=== PATIENT | female | born 1995 | race Native Hawaiian/Other Pacific Islander ===

== ENCOUNTER 2018-04-29 20:24 | Emergency (ER) | payer SELFPAY ==
[2018-04-29 20:53] VITALS: BP 115/74
[2018-04-29] MEDS ORDERED: MOTRIN ONE (21:02)
[2018-04-29] MEDS ORDERED: MOTRIN PO ONE (21:08)
[2018-04-29] MEDS ORDERED: BENADRYL PO ONE (21:40)
[2018-04-29] MEDS ORDERED: NORCO 7.5/325 PO ONE (21:44)
--- NOTE | 2018-04-29 21:45 | Emergency Department Report ---
ED Lower Extremity HPI - General Chief Complaint: Extremity Injury, Lower Stated Complaint: R ANKLE PAIN Time Seen by Provider: 04/29/18 21:35 Source: patient, EMS Mode of arrival: Wheelchair Limitations: Physical Limitation - History of Present Illness Initial Comments: This is a 23-year-old female who presents with pain to right ankle from falling today. 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 She was planned slip and slide with her students around 1930 today and slipped but did not slide. Patient states she heard a pop when incident occurred. She felt her ankle bend and twist in opposite direction. She was unable to stand. Someone called an ambulance to escort her here. Patient states paramedics had to lift her off the ground. She reports pain is 10 out of 10 on pain scale and constant. There is some swelling with numbness and tingling to lateral ankle. Denies loss of consciousness, nausea/vomiting, chest pain, and deformity. MD Complaint: ankle injury (right ankle) Onset/Timin -: hour(s) Time: 19:30 Injury: Ankle: Right Type of Injury: unknown Place: work Severity: severe Severity scale (0 -10): 10 Improves With: nothing Worsens With: weight bearing, movement, palpation Context: fall Associated Symptoms: snap/pop sensation, swelling, numbness, tingling, unable to bear weight Treatments Prior to Arrival: splint - Related Data Previous Rx's Medication Instructions Recorded Last Taken Type Ibuprofen [Motrin 600 MG tab] 600 mg PO Q8H PRN #15 tablet 04/29/18 Unknown Rx Tizanidine HCl [Zanaflex] 2 mg PO TID PRN #12 capsule 04/29/18 Unknown Rx diphenhydrAMINE [Benadryl CAP] 25 mg PO Q8HR PRN #15 capsule 04/29/18 Unknown Rx traMADol [Ultram 50 MG tab] 50 mg PO Q6HR PRN #15 tablet 04/29/18 Unknown Rx Allergies Allergy/AdvReac Type Severity Reaction Status Date / Time hydrocodone Allergy Itching Verified 04/29/18 20:55 ED Review of Systems ROS: Stated complaint: R ANKLE PAIN Other details as noted in HPI Constitutional: denies: chills, fever Respiratory: denies: cough, shortness of breath, wheezing Cardiovascular: denies: chest pain, palpitations Gastrointestinal: denies: abdominal pain, nausea, diarrhea Musculoskeletal: joint swelling (right ankle), arthralgia (right ankle). denies : back pain Skin: denies: rash, lesions Neurological: numbness. denies: headache, weakness, paresthesias Psychiatric: denies: anxiety, depression ED Past Medical Hx - Past Medical History Previous Medical History?: No - Surgical History Past Surgical History?: Yes Hx Appendectomy: Yes - Social History Smoking Status: Former Smoker Substance Use Type: None - Medications Home Medications: Home Medications Medication Instructions Recorded Confirmed Last Taken Type Ibuprofen [Motrin 600 MG tab] 600 mg PO Q8H PRN #15 tablet 04/29/18 Unknown Rx Tizanidine HCl [Zanaflex] 2 mg PO TID PRN #12 capsule 04/29/18 Unknown Rx diphenhydrAMINE [Benadryl CAP] 25 mg PO Q8HR PRN #15 capsule 04/29/18 Unknown Rx traMADol [Ultram 50 MG tab] 50 mg PO Q6HR PRN #15 tablet 04/29/18 Unknown Rx ED Physical Exam - General Limitations: Physical Limitation General appearance: obese - Respiratory Respiratory exam: Present: normal lung sounds bilaterally. Absent: respiratory distress - Cardiovascular Cardiovascular Exam: Present: regular rate, normal rhythm. Absent: systolic murmur, diastolic murmur, rubs, gallop - GI/Abdominal GI/Abdominal exam: Present: soft, normal bowel sounds. Absent: organomegaly, mass - Extremities Exam Extremities exam: Present: normal inspection, normal capillary refill. Absent: pedal edema, calf tenderness - Expanded Lower Extremity Exam Right Hip exam: Present: normal inspection, full ROM Upper Leg exam: Present: normal inspection, full ROM Knee exam: Present: normal inspection, full ROM Lower Leg exam: Present: normal inspection, full ROM Ankle exam: Present: tenderness (swelling and tenderness to the lateral malleolus, no erythema), swelling. Absent: full ROM (patient is unable to tolerate passive or active range of motion), abrasion, laceration, ecchymosis, deformity, crepidus, dislocation, erythema, anterior draw sign Foot/Toe exam: Present: normal inspection, full ROM Neuro vascular tendon exam: Present: no vascular compromise Gait: Positive: unable to bear weight ED Course Vital Signs 04/29/18 20:36 Temperature 98.6 F Pulse Rate 77 Respiratory 16 Rate Blood Pressure 115/74 O2 Sat by Pulse 100 Oximetry ED Lower Extremity MDM - Radiology Data Radiology results: report reviewed EXAM: XR ANKLE 2V RT HISTORY: fall swollen and painful right ankle TECHNIQUE: Two views right ankle Comparison: None FINDINGS: Normal bony mineralization. Splint material obscures some of the detail. There is an oblique distal fibular metaphyseal fracture extending at the level of the joint into the syndesmosis. There is mild widening of the medial mortise by approximately 0.5 centimeters. There is an accessory ossicle to the talus. Soft tissue swelling is present. No other fractures are identified. IMPRESSION: Gomez B 1 versus B2 fracture oblique distal fibular metaphyseal fracture extending into the syndesmosis. Questionable mild widening of the medial mortise may suggest Gomez B 2. if repeat images could be performed without the splint present it may help improve anatomic detail. - Medical Decision Making This is a 23-year-old female presents with right ankle pain from a fall earlier today. Patient was examined by me. Vitals are normal and patient is in slight acute distress. Patient given Benadryl 25 mg by mouth and [place] 10 /325 mg by mouth. Patient does have initiated of hydrocodone allergy but states she can take hydrocodone with Benadryl with no allergic reaction. Obtained a x-ray of right ankle. X-ray dictated by radiologist and I review report and scan. Gomez B 1 versus B2 fracture oblique distal fibular metaphyseal fracture extending into the syndesmosis. Questionable mild widening of the medial mortise may suggest Gomez B 2. if repeat images could be performed without the splint present it may help improve anatomic detail. Right ankle placed in distal splint and patient educated on crutch use. Patient instructed in nonweightbearing to right lower extremity. Patient informed of results. Start ibuprofen, tramadol, zanaflex, and Benadryl for pain. Plan discussed with patient to discharge home and treat outpatient with orthopedic surgeon. She agrees with ER plan. Patient discharged home in stable condition. Follow up with orthopedic surgeon in 2-3 days. Critical care attestation.: If time is entered above; I have spent that time in minutes in the direct care of this critically ill patient, excluding procedure time. ED Disposition Clinical Impression: Acute right ankle pain Closed right ankle fracture Qualifiers: Encounter type: initial encounter Qualified Code(s): S82.891A - Other fracture of right lower leg, initial encounter for closed fracture Disposition: - TO HOME OR SELFCARE Is pt being admited?: No Does the pt Need Aspirin: No Condition: Stable Instructions: Arthralgia (ED), Ankle Fracture (ED) Additional Instructions: Do not apply weight bearing to right lower extremity. Take pain medication every 6 hours as needed for pain. Use crutches to help walk. Follow-up with orthopedic surgeon for further management of fracture. Follow up with Primary Care Provider in 2-3 days. Prescriptions: diphenhydrAMINE [Benadryl CAP] 25 mg PO Q8HR PRN #15 capsule PRN Reason: Itching Ibuprofen [Motrin 600 MG tab] 600 mg PO Q8H PRN #15 tablet PRN Reason: Pain Tizanidine HCl [Zanaflex] 2 mg PO TID PRN #12 capsule PRN Reason: Muscle Spasm traMADol [Ultram 50 MG tab] 50 mg PO Q6HR PRN #15 tablet PRN Reason: Pain Referrals: VERO BAILEY MD [Staff Physician] - 3-[address] [facility] [Provider Group] - 3-5 Days [facility] [Outside] - 3-5 Days [facility] [Outside] - 3-5 Days Time of Disposition: 22:53 Print Language: TURKISH
--- NOTE | 2018-04-29 22:36 | XRay Report ---
FINAL REPORT EXAM: XR ANKLE 2V RT HISTORY: fall swollen and painful right ankle TECHNIQUE: Two views right ankle Comparison: None FINDINGS: Normal bony mineralization. Splint material obscures some of the detail. There is an oblique distal fibular metaphyseal fracture extending at the level of the joint into the syndesmosis. There is mild widening of the medial mortise by approximately 0.5 centimeters. There is an accessory ossicle to the talus. Soft tissue swelling is present. No other fractures are identified. IMPRESSION: Gomez B 1 versus B2 fracture oblique distal fibular metaphyseal fracture extending into the syndesmosis. Questionable mild widening of the medial mortise may suggest Gomez B 2. if repeat images could be performed without the splint present it may help improve anatomic detail.
== END 2018-04-29 23:20 | disposition home or self-care (01) ==
LOC: ED 20:24
DX: S82.891A Other fracture of right lower leg, initial encounter for closed fracture (principal); Z90.89 Acquired absence of other organs; Z87.891 Personal history of nicotine dependence; Z88.6 Allergy status to analgesic agent; W01.0XXA Fall on same level from slipping, tripping and stumbling without subsequent striking against object, initial encounter; Y93.89 Activity, other specified; Y92.89 Other specified places as the place of occurrence of the external cause; Y99.8 Other external cause status
CPT/HCPCS: 99284

== ENCOUNTER 2019-05-06 21:59 | Emergency (ER) | payer SELFPAY ==
--- NOTE | 2019-05-06 22:40 | Emergency Department Report ---
Blank Doc - Documentation Documentation: This is a 24-year-old female that presents with headache s/p fall. Patient de nies and signed consent form for negative . This initial assessment/diagnostic orders/clinical plan/treatment(s) is/are subject to change based on patient's health status, clinical progression and re- assessment by fellow clinical providers in the ED. Further treatment and workup at subsequent clinical providers discretion. Patient/guardians urged not to elope from the ED as their condition may be serious if not clinically assessed and managed. Initial orders include: 1- Patient sent to [facility] for further evaluation and treatment 2- CT head and neck pain
--- NOTE | 2019-05-07 00:02 | Cat Scan Report ---
Head CT without intravenous contrast INDICATION: Closed head trauma tonight FINDINGS: Ventricles are normal in size and position. No hemorrhage or extra-axial fluid collection. No edema or mass effect. Infarct is seen. Portions of the sinuses visualized are clear. No skull frac ture identified. IMPRESSION: Negative head CT. Signer Name: Axel Talley MD Signed: 05/06/2019 11:58 PM Workstation Name: [id number]
[2019-05-07] MEDS ORDERED: PERCOCET 5/325 PO ONE (00:08)
[2019-05-07] MEDS ORDERED: ZOFRAN ODT PO ONE (00:08)
[2019-05-07] MEDS ORDERED: IBUPROFEN PO ONE (00:08)
--- NOTE | 2019-05-07 00:16 | Cat Scan Report ---
CT of the cervical spine INDICATION: Neck pain following fall today FINDINGS: The vertebral body heights and disc spaces are maintained. No vertebral body compression fr acture or subluxation. There is no facet arthropathy or posterior element fracture. No soft tissue sw elling or epidural hematoma. Odontoid and spinous processes are unremarkable. No abnormality seen. IMPRESSION: Negative cervical spine CT. All CT scans at this location are performed using CT dose reduction for ALARA by means of automated e xposure control Signer Name: Axel Talley MD Signed: 05/07/2019 12:12 AM Workstation Name: [id number]
--- NOTE | 2019-05-07 00:59 | XRay Report ---
Lumbosacral spine, 3 views INDICATION: Back pain following fall tonight FINDINGS: The vertebral body heights and disc spaces are preserved. No fracture or spondylolisthesis. No spurring or arthritis. No bony abnormality identified. Impression: Normal lumbar spine radiograph. Signer Name: Axel Talley MD Signed: 05/07/2019 12:54 AM Workstation Name: [id number]
--- NOTE | 2019-05-07 01:00 | XRay Report ---
. Left elbow, 3 views INDICATION: Pain following fall tonight FINDINGS: The joint space is maintained. There is no fracture or dislocation. No spurring or arthriti c change. No bone lesion or periostitis. No significant abnormality. IMPRESSION: Negative study Signer Name: Axel Talley MD Signed: 05/07/2019 12:55 AM Workstation Name: [id number]
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
[2019-05-07 01:21] VITALS: BP 136/74
== END 2019-05-07 01:20 | disposition home or self-care (01) ==
LOC: ED 21:59
DX: S00.03XA Contusion of scalp, initial encounter (principal); S53.402A Unspecified sprain of left elbow, initial encounter; G44.319 Acute post-traumatic headache, not intractable; M62.830 Muscle spasm of back; Z79.1 Long term (current) use of non-steroidal anti-inflammatories (NSAID); Z79.899 Other long term (current) drug therapy; Z90.49 Acquired absence of other specified parts of digestive tract; Z88.5 Allergy status to narcotic agent; W01.198A Fall on same level from slipping, tripping and stumbling with subsequent striking against other object, initial encounter; Y93.89 Activity, other specified; Y92.488 Other paved roadways as the place of occurrence of the external cause; Y99.8 Other external cause status
CPT/HCPCS: 70450; 72100; 72125; 99284; Q0162